=== PATIENT | male | born 1930 | race Caucasian/White ===

== ENCOUNTER → 2016-05-15 | Outpatient (CLI) | payer OTHER ==
[~2016-05-15] MED LIST: AMI200T PO; ASPI-111 PO; MET25T PO
[2016-05-15 08:37] LABS: Basophils # (auto) 0 uL; Basophils % (auto) 0.6 % (0.0-2.0); Eosinophils # (auto) 0.4 uL; Eosinophils % (auto) 5.2 % (0.0-7.0); Hematocrit 36.5 % (41.0-53.0); Hemoglobin 11.9 g/dL (13.5-17.5); Lymphocytes # (auto) 1.6 uL; Lymphocytes % (auto) 21.9 % (10.0-50.0); Mean Corpuscular Hemoglobin 28.7 pg (28.0-32.0); Mean Corpuscular Hgb Conc. 32.5 g/dL (32.0-36.0); Mean Corpuscular Volume 88.2 fL (80.0-100.0); Mean Platelet Volume 6.5 fL (7.4-10.4); Monocytes # (auto) 0.6 uL; Monocytes % (auto) 8.2 % (0.0-12.0); Neutrophils # (auto) 4.7 uL; Neutrophils % (auto) 64.1 % (37.0-80.0); Platelet Count (auto) 460 10^3/uL (140-450); Red Cell Distribution Width 14.8 % (11.6-16.0); White Blood Cell 7.4 10^3/uL (4.4-10.8)
[2016-05-15 09:13] LABS: BUN/Creatinine Ratio 18.8; Calcium 8.2 mg/dL (8.5-10.1); Potassium 4.2 mmol/L (3.5-5.1)
== END | disposition home or self-care (01) ==
LOC: LAB 08:04
PROVIDERS: ATTEND Internal Medicine
DX: Z00.00 Encounter for general adult medical examination without abnormal findings (principal)
CPT/HCPCS: 36415; 80048; 85025

== ENCOUNTER 2016-07-05 10:32 | Inpatient (IN) | payer OTHER ==
[~2016-07-05] VITALS: Ht 165.1 cm; Wt 60.5 kg
[2016-07-05 11:13] LABS: Basophils # (auto) 0 uL; Basophils % (auto) 0.1 % (0.0-2.0); Eosinophils # (auto) 0 uL; Eosinophils % (auto) 0.1 % (0.0-7.0); Hematocrit 38.9 % (41.0-53.0); Hemoglobin 12.5 g/dL (13.5-17.5); Lymphocytes # (auto) 0.6 uL; Mean Corpuscular Hemoglobin 27.2 pg (28.0-32.0); Mean Corpuscular Volume 84.8 fL (80.0-100.0); Mean Platelet Volume 6.6 fL (7.4-10.4); Monocytes # (auto) 0.8 uL; Monocytes % (auto) 6.5 % (0.0-12.0); Neutrophils # (auto) 10.9 uL; Neutrophils % (auto) 88.3 % (37.0-80.0); Platelet Count (auto) 337 10^3/uL (140-450); Red Cell Distribution Width 15.6 % (11.6-16.0); White Blood Cell 12.3 10^3/uL (4.4-10.8)
[2016-07-05] MEDS ORDERED: SODIUM CHLORIDE 0.9% 1,000 ML IV ONE (11:30)
[2016-07-05 11:56] LABS: Albumin 3.1 g/dL (3.4-5.0); Alkaline Phosphatase 125 U/L (45-117); Anion Gap 13 (5-15); Aspartate Aminotransferase 29 U/L (15-37); BUN/Creatinine Ratio 18.4; Bilirubin, Total 0.6 mg/dL (0.2-1.0); Blood Urea Nitrogen 63 mg/dL (7-18); Calcium 8.6 mg/dL (8.5-10.1); Carbon Dioxide 23 mmol/L (21-32); Chloride 101 mmol/L (98-107); GFR African American 22 mL/min; GFR Non-African American 18 mL/min; Glucose 85 mg/dL (74-106); Magnesium 3.3 mg/dL (1.6-2.6); Sodium 137 mmol/L (136-145); Total Protein 7.5 g/dL (6.4-8.2)
[2016-07-05 12:30] LABS: Urine Bilirubin Negative (Negative); Urine Color Yellow (Yellow); Urine Glucose Normal (Normal); Urine Ketone Negative (Negative); Urine Mucus FEW (None Seen); Urine Nitrite Negative (Negative); Urine RBC 162 /hpf (0 - 3); Urine Squamous Epithelial Cell FEW /hpf (<5); Urine Urobilinogen Normal (Negative); Urine WBC Clumps PRESENT /hpf (None Seen); Urine pH 5.5 (5.0-8.0)
[2016-07-05] MEDS ORDERED: MORPHINE SULF INJ 2 MG/ML SYRINGE 1ML IV PRN ×2 (12:30)
[2016-07-05] MEDS ORDERED: LACTULOSE 20Gm/30ML SOLN PO PRN (12:30)
[2016-07-05] MEDS ORDERED: ACETAMINOPHEN 500 MG TAB PO PRN (12:30)
[2016-07-05] MEDS ORDERED: HYDROcodone-ACET 5/325MG TAB PO PRN (12:30)
[2016-07-05] MEDS ORDERED: PROCHLORPERAZINE EDISYLATE 5 MG/ML 2ML VIAL IV PRN (12:30)
[2016-07-05] MEDS ORDERED: NITROGLYCERIN 0.4 MG SL TAB SL PRN (12:30)
[2016-07-05] MEDS ORDERED: cefTRIAXone 1GM/50ML D5W 50 ML IV ONE (12:30)
[2016-07-05 12:34] LABS: Urine Blood 3+ /uL (Negative)
[2016-07-05] MEDS: SODIUM CHLORIDE 0.9% 1,000 ML IV SCH ×2 (12:50→23:10)
[2016-07-05 13:11] LABS: Temperature: 22.8 C (20.0-25.0)
[2016-07-05] MEDS ORDERED: IOHEXOL 300 MG/ML 100ML BOTTLE IJ ONE (14:41)
[2016-07-05] MEDS ORDERED: TRAZ100T2 PO (15:57)
[2016-07-05 16:39] VITALS: BP 134/84
[2016-07-05 22:00] VITALS: BP 143/80
[2016-07-06 05:00] VITALS: BP 133/75
[2016-07-06 05:37] LABS: Basophils # (auto) 0 uL; Eosinophils # (auto) 0.1 uL; Eosinophils % (auto) 0.8 % (0.0-7.0); Hematocrit 32.4 % (41.0-53.0); Hemoglobin 10.3 g/dL (13.5-17.5); Lymphocytes # (auto) 0.8 uL; Lymphocytes % (auto) 12.6 % (10.0-50.0); Mean Corpuscular Hemoglobin 27.2 pg (28.0-32.0); Mean Corpuscular Hgb Conc. 31.9 g/dL (32.0-36.0); Mean Corpuscular Volume 85.2 fL (80.0-100.0); Mean Platelet Volume 7.1 fL (7.4-10.4); Monocytes # (auto) 0.5 uL; Monocytes % (auto) 7.5 % (0.0-12.0); Neutrophils # (auto) 5.3 uL; Neutrophils % (auto) 79.1 % (37.0-80.0); Platelet Count (auto) 276 10^3/uL (140-450); Red Cell Distribution Width 15.3 % (11.6-16.0); White Blood Cell 6.6 10^3/uL (4.4-10.8)
[2016-07-06 05:44] LABS: BUN/Creatinine Ratio 31.9; Calcium 7.6 mg/dL (8.5-10.1); Phosphorus 2.2 mg/dL (2.5-4.90); Potassium 3.1 mmol/L (3.5-5.1); Uric Acid 5.6 mg/dL (3.5-7.2)
[2016-07-06 08:00] VITALS: BP 135/68
[2016-07-06 08:23] VITALS: BP 135/68
[2016-07-06] MEDS: SODIUM CHLORIDE 0.9% 1,000 ML IV SCH (08:23)
[2016-07-06] MEDS: cefTRIAXone 1GM/50ML D5W 50 ML IV SCH (09:29)
[2016-07-06] MEDS ORDERED: ENOXAPARIN SOD 30 MG/0.3 ML SYRINGE SC SCH (10:00)
[2016-07-06] MEDS ORDERED: POTASSIUM CHL 20 Meq TABLET PO ONE (10:30)
[2016-07-06] MEDS: ASPirin 81 mg TAB PO SCH (10:45)
[2016-07-06] MEDS: LORazepam 0.5 MG TAB PO PRN ×2 (11:56→18:58)
[2016-07-06 16:50] VITALS: BP 137/64
[2016-07-06] MEDS: TEMAZEPAM 15 MG CAP PO PRN (21:58)
[2016-07-06 22:00] VITALS: BP 125/55
[2016-07-07] MEDS: LORazepam 0.5 MG TAB PO PRN (01:44)
[2016-07-07 05:00] VITALS: BP 161/78
[2016-07-07 05:02] LABS: Urine Bilirubin Negative (Negative); Urine Color Yellow (Yellow); Urine Glucose Normal (Normal); Urine Ketone Negative (Negative); Urine Mucus FEW (None Seen); Urine Nitrite Negative (Negative); Urine RBC 739 /hpf (0 - 3); Urine Urobilinogen Normal (Negative)
[2016-07-07 05:11] LABS: Urine Blood 3+ /uL (Negative)
[2016-07-07 05:30] VITALS: BP 161/78
[2016-07-07 07:29] LABS: BUN/Creatinine Ratio 30.3; Calcium 7.7 mg/dL (8.5-10.1); Potassium 3.7 mmol/L (3.5-5.1)
[2016-07-07 07:36] LABS: Basophils # (auto) 0 uL; Basophils % (auto) 0.2 % (0.0-2.0); Eosinophils # (auto) 0.1 uL; Eosinophils % (auto) 1.8 % (0.0-7.0); Hematocrit 33.6 % (41.0-53.0); Hemoglobin 10.8 g/dL (13.5-17.5); Lymphocytes # (auto) 1.1 uL; Lymphocytes % (auto) 20.1 % (10.0-50.0); Mean Corpuscular Hemoglobin 27.4 pg (28.0-32.0); Mean Corpuscular Volume 85.4 fL (80.0-100.0); Mean Platelet Volume 7.3 fL (7.4-10.4); Monocytes # (auto) 0.5 uL; Monocytes % (auto) 9.6 % (0.0-12.0); Neutrophils # (auto) 3.7 uL; Neutrophils % (auto) 68.3 % (37.0-80.0); Platelet Count (auto) 308 10^3/uL (140-450); White Blood Cell 5.4 10^3/uL (4.4-10.8)
[2016-07-07] MEDS ORDERED: PROPOFOL 10 MG/ML 20 ML IV ONE (07:39)
[2016-07-07] MEDS ORDERED: fentaNYL CITRATE 100 MCG/2 ML VL ONE (07:39)
[2016-07-07] MEDS ORDERED: ROCURONIUM 10MG/ML 10ML VIAL IV ONE (07:43)
[2016-07-07 08:00] VITALS: BP 143/67
[2016-07-07] MEDS: cefTRIAXone 1GM/50ML D5W 50 ML IV SCH (09:00)
[2016-07-07 09:15] LABS: INR 0.99 (0.9-1.15); Partial Thromboplastin Time 28.9 sec (22.64-33.71); Prothrombin Time 10.7 sec (9.37-12.3)
[2016-07-07] MEDS ORDERED: ONDANSETRON HCL 4 MG/2 ML VIAL IV ONE (10:00)
[2016-07-07] MEDS ORDERED: hydrALAZINE HCL 20 MG/ML VL IV PRN (10:00)
[2016-07-07] MEDS ORDERED: MORPHINE SULF INJ 2 MG/ML SYRINGE 1ML IV PRN (10:00)
[2016-07-07] MEDS: ASPirin 81 mg TAB PO SCH (10:00)
[2016-07-07] MEDS ORDERED: ENOXAPARIN SOD 40 MG/0.4 ML SYRINGE SC SCH (10:00)
[2016-07-07] MEDS: BELLADONNA ALKAL/OPIUM (16.2/30MG) RECT SUPP PR SCH (10:00)
[2016-07-07] MEDS ORDERED: ePHEDrine SULFATE 50 MG/ML AMP IV PRN (10:00)
[2016-07-07] MEDS: SODIUM CHLORIDE 0.9% 1,000 ML IV SCH (12:26)
[2016-07-07] MEDS: TEMAZEPAM 15 MG CAP PO PRN (21:17)
[2016-07-07 22:00] VITALS: BP 116/74
[2016-07-08 05:00] VITALS: BP 149/69
[2016-07-08] MEDS: SODIUM CHLORIDE 0.9% 1,000 ML IV SCH ×2 (05:48→22:04)
[2016-07-08 07:15] LABS: Basophils # (auto) 0 uL; Basophils % (auto) 0.3 % (0.0-2.0); Eosinophils # (auto) 0.2 uL; Eosinophils % (auto) 3.4 % (0.0-7.0); Hematocrit 32.4 % (41.0-53.0); Hemoglobin 10.4 g/dL (13.5-17.5); Lymphocytes # (auto) 1.1 uL; Lymphocytes % (auto) 16.5 % (10.0-50.0); Mean Corpuscular Hemoglobin 27.4 pg (28.0-32.0); Mean Corpuscular Hgb Conc. 32.2 g/dL (32.0-36.0); Mean Corpuscular Volume 84.9 fL (80.0-100.0); Mean Platelet Volume 6.9 fL (7.4-10.4); Monocytes # (auto) 0.5 uL; Monocytes % (auto) 7.6 % (0.0-12.0); Neutrophils % (auto) 72.2 % (37.0-80.0); Platelet Count (auto) 291 10^3/uL (140-450); Red Cell Distribution Width 15.4 % (11.6-16.0); White Blood Cell 6.9 10^3/uL (4.4-10.8)
[2016-07-08 07:38] LABS: Calcium 7.1 mg/dL (8.5-10.1); Potassium 3.2 mmol/L (3.5-5.1)
[2016-07-08 09:52] VITALS: BP 141/109
[2016-07-08] MEDS: BELLADONNA ALKAL/OPIUM (16.2/30MG) RECT SUPP PR SCH (10:00)
[2016-07-08] MEDS: cefTRIAXone 1GM/50ML D5W 50 ML IV SCH (10:10)
[2016-07-08] MEDS: ASPirin 81 mg TAB PO SCH (10:20)
[2016-07-08] MEDS ORDERED: POTASSIUM CHL 20 Meq TABLET PO ONE (12:15)
[2016-07-08] MEDS ORDERED: FLUCONAZOLE 200MG/100ML 100 ML IV ONE (12:30)
[2016-07-08 13:30] VITALS: BP 132/78
[2016-07-08] MEDS: METOPROLOL TARTRATE 25 MG TAB PO SCH ×2 (15:00→22:04)
[2016-07-08 17:40] VITALS: BP 138/72
[2016-07-09 06:30] LABS: Hematocrit 31.1 % (41.0-53.0); Hemoglobin 10.1 g/dL (13.5-17.5)
[2016-07-09 06:56] LABS: Calcium 7.2 mg/dL (8.5-10.1); Magnesium 1.6 mg/dL (1.6-2.6); Potassium 3.6 mmol/L (3.5-5.1)
[2016-07-09 07:10] LABS: BUN/Creatinine Ratio 14.1
[2016-07-09] MEDS: BELLADONNA ALKAL/OPIUM (16.2/30MG) RECT SUPP PR SCH (08:56)
[2016-07-09] MEDS: METOPROLOL TARTRATE 25 MG TAB PO SCH (08:56)
[2016-07-09 09:00] VITALS: BP 147/59
[2016-07-09] MEDS ORDERED: FLUCONAZOLE 200MG/100ML 100 ML IV SCH (10:00)
[2016-07-09] MEDS ORDERED: FLUC200T35 PO (10:38)
[2016-07-09] MEDS ORDERED: MAGNESIUM SULFATE 1GM/100ML 100 ML IV ONE (10:45)
[2016-07-09] MEDS ORDERED: POTASSIUM CHL 20 Meq TABLET PO ONE (10:45)
[2016-07-09 12:36] VITALS: BP 147/59
[2016-07-09 13:00] VITALS: BP 138/69
[2016-07-09] MEDS: SODIUM CHLORIDE 0.9% 1,000 ML IV SCH (14:23)
[2016-07-09 18:50] VITALS: BP 141/74
== END 2016-07-09 20:15 | disposition home or self-care (01) | DRG 666 ==
LOC: ER 10:38 → TELE 10:39 → TELE-EAST 16:27
PROVIDERS: ADMIT Internal Medicine; ATTEND Internal Medicine
PROC: 0T9B80Z Drainage of Bladder with Drainage Device, Via Natural or Artificial Opening Endoscopic (ICD-10-PCS; principal; 2016-07-05)
PROC: 0VB08ZZ Excision of Prostate, Via Natural or Artificial Opening Endoscopic (ICD-10-PCS; 2016-07-07)
DX: N32.0 Bladder-neck obstruction (principal); N13.30 Unspecified hydronephrosis; N17.9 Acute kidney failure, unspecified; N39.0 Urinary tract infection, site not specified; N40.1 Benign prostatic hyperplasia with lower urinary tract symptoms; F17.210 Nicotine dependence, cigarettes, uncomplicated; R33.8 Other retention of urine; E87.6 Hypokalemia; I48.0 Paroxysmal atrial fibrillation; F02.80 Dementia in other diseases classified elsewhere, unspecified severity, without behavioral disturbance, psychotic disturbance, mood disturbance, and anxiety; W19.XXXA Unspecified fall, initial encounter; G30.9 Alzheimer's disease, unspecified; E83.41 Hypermagnesemia; R31.0 Gross hematuria; N36.5 Urethral false passage; N18.9 Chronic kidney disease, unspecified; Z80.1 Family history of malignant neoplasm of trachea, bronchus and lung; Y92.094 Garage of other non-institutional residence as the place of occurrence of the external cause
CPT/HCPCS: 36415; 70450; 71020; 72170; 74176; 76000; 76775; 80048; 80053; 80320; 81001; 82550; 82570; 82607; 82746; 82962; 83735; 84100; 84156; 84300; 84443; 84484; 84550; 85014; 85018; 85025; 85610; 85652; 85730; 87081; 87086; 93005; 96361; 96365; J0696; J1450; J2704

== ENCOUNTER 2016-07-10 20:13 | Inpatient (IN) | payer OTHER ==
[~2016-07-10] VITALS: Ht 170.2 cm; Wt 65.3 kg
[~2016-07-10 20:13] MED LIST changes: +FLUC200T35 PO; +TRAZ100T2 PO
[2016-07-10 20:49] LABS: Hematocrit 33.1 % (41.0-53.0); Hemoglobin 10.7 g/dL (13.5-17.5); Mean Corpuscular Hemoglobin 27.1 pg (28.0-32.0); Mean Corpuscular Hgb Conc. 32.3 g/dL (32.0-36.0); Mean Corpuscular Volume 83.9 fL (80.0-100.0); Mean Platelet Volume 7.2 fL (7.4-10.4); Platelet Count (auto) 392 10^3/uL (140-450); SUSPECT VIEW TRANSMISSION; White Blood Cell 15.3 10^3/uL (4.4-10.8)
[2016-07-10 21:02] LABS: Metamyelocytes % 0; Myelocytes % 0; Promyelocytes % 0; Reactive Lymphocytes 0
[2016-07-10 21:08] LABS: Albumin 2.1 g/dL (3.4-5.0); BUN/Creatinine Ratio 8.8; Calcium 7.2 mg/dL (8.5-10.1); Magnesium 1.8 mg/dL (1.6-2.6); Potassium 3.4 mmol/L (3.5-5.1)
[2016-07-10 21:13] LABS: Bilirubin, Total 0.4 mg/dL (0.2-1.0); Total Protein 5.8 g/dL (6.4-8.2)
[2016-07-10 22:07] LABS: Platelet Estimate Adequate
[2016-07-10 22:08] LABS: Anisocytosis Slight
[2016-07-10 22:14] LABS: B-Type Natriuretic Peptide 334.85 pg/mL (0-100)
[2016-07-10 22:15] LABS: Temperature: 23.4 C (20.0-25.0)
[2016-07-10] MEDS ORDERED: PIPERACILLIN-TAZOB 3.375GM 100 ML IV ONE (23:00)
[2016-07-10] MEDS ORDERED: HYDROcodone-ACET 5/325MG TAB PO PRN (23:45)
[2016-07-10] MEDS ORDERED: MORPHINE SULF INJ 2 MG/ML SYRINGE 1ML IV PRN (23:45)
[2016-07-10] MEDS ORDERED: FLUCONAZOLE 200MG/100ML 100 ML IV ONE (23:45)
[2016-07-10] MEDS ORDERED: cefTRIAXone 1GM/50ML D5W 50 ML IV ONE (23:45)
[2016-07-10] MEDS ORDERED: ONDANSETRON HCL 4 MG/2 ML VIAL IV PRN (23:45)
[2016-07-11 00:25] LABS: Urine Bilirubin Negative (Negative); Urine Color Yellow (Yellow); Urine Glucose Normal (Normal); Urine Ketone Negative (Negative); Urine Mucus FEW (None Seen); Urine Nitrite Negative (Negative); Urine RBC 38 /hpf (0 - 3); Urine Squamous Epithelial Cell FEW /hpf (<5); Urine Urobilinogen Normal (Negative)
[2016-07-11 00:26] LABS: Urine Blood 2+ /uL (Negative)
[2016-07-11] MEDS: SOD CHL 0.9%/ KCL 20MEQ 1,000 ML IV SCH ×2 (02:11→13:05)
[2016-07-11 05:30] VITALS: BP 118/55
[2016-07-11 05:56] LABS: Basophils # (auto) 0 uL; Basophils % (auto) 0.2 % (0.0-2.0); Eosinophils # (auto) 0 uL; Eosinophils % (auto) 0.1 % (0.0-7.0); Hematocrit 29.6 % (41.0-53.0); Hemoglobin 9.5 g/dL (13.5-17.5); Lymphocytes # (auto) 1.1 uL; Lymphocytes % (auto) 7.9 % (10.0-50.0); Mean Corpuscular Volume 84.5 fL (80.0-100.0); Mean Platelet Volume 7.5 fL (7.4-10.4); Monocytes % (auto) 6.8 % (0.0-12.0); Neutrophils # (auto) 12.3 uL; Platelet Count (auto) 356 10^3/uL (140-450); Red Cell Distribution Width 15.6 % (11.6-16.0); White Blood Cell 14.4 10^3/uL (4.4-10.8)
[2016-07-11 06:08] LABS: INR 1.09 (0.9-1.15); Partial Thromboplastin Time 33.1 sec (22.64-33.71); Prothrombin Time 11.8 sec (9.37-12.3)
[2016-07-11 06:19] LABS: BUN/Creatinine Ratio 15.6; Calcium 6.9 mg/dL (8.5-10.1)
[2016-07-11 06:27] LABS: Potassium 2.9 mmol/L (3.5-5.1)
[2016-07-11] MEDS: POTASSIUM CHL 20 Meq TABLET PO ONE ×2 (06:45→07:10)
[2016-07-11] MEDS: POTASSIUM CHL 20MEQ/100ML 100 ML IV SCH ×2 (07:10→08:45)
[2016-07-11 08:00] VITALS: BP 125/61
[2016-07-11 09:00] VITALS: BP 125/61
[2016-07-11] MEDS: ASPirin 81 mg TAB PO SCH (10:44)
[2016-07-11] MEDS: AMIODARONE HCL 200 MG TAB PO SCH ×2 (10:45→21:10)
[2016-07-11] MEDS: METOPROLOL TARTRATE 25 MG TAB PO SCH ×2 (10:45→21:11)
[2016-07-11 13:00] VITALS: BP 132/70
[2016-07-11] MEDS ORDERED: FAMOTIDINE 20 MG TAB PO ONE (13:15)
[2016-07-11 16:50] VITALS: BP 101/50
[2016-07-11] MEDS: FLUCONAZOLE 200MG/100ML 100 ML IV SCH (21:07)
[2016-07-11 22:00] VITALS: BP 136/54
[2016-07-11] MEDS ORDERED: cefTRIAXone 1GM/50ML D5W 50 ML IV SCH (22:00)
[2016-07-12] MEDS: SOD CHL 0.9%/ KCL 20MEQ 1,000 ML IV SCH ×3 (02:34→20:23)
[2016-07-12 05:00] VITALS: BP 132/70
[2016-07-12 07:20] LABS: Basophils # (auto) 0 uL; Basophils % (auto) 0.2 % (0.0-2.0); Eosinophils # (auto) 0.1 uL; Eosinophils % (auto) 0.4 % (0.0-7.0); Hematocrit 31.1 % (41.0-53.0); Hemoglobin 10.3 g/dL (13.5-17.5); Lymphocytes # (auto) 1.2 uL; Lymphocytes % (auto) 6.3 % (10.0-50.0); Mean Corpuscular Hemoglobin 27.8 pg (28.0-32.0); Mean Corpuscular Volume 84.2 fL (80.0-100.0); Mean Platelet Volume 6.7 fL (7.4-10.4); Monocytes # (auto) 1.1 uL; Monocytes % (auto) 5.8 % (0.0-12.0); Neutrophils # (auto) 16.6 uL; Neutrophils % (auto) 87.3 % (37.0-80.0); Platelet Count (auto) 392 10^3/uL (140-450); Red Cell Distribution Width 16.2 % (11.6-16.0); White Blood Cell 19.1 10^3/uL (4.4-10.8)
[2016-07-12 07:40] LABS: BUN/Creatinine Ratio 18.6; Calcium 7.2 mg/dL (8.5-10.1); Magnesium 2.1 mg/dL (1.6-2.6); Potassium 3.3 mmol/L (3.5-5.1)
[2016-07-12 08:00] VITALS: BP 138/66
[2016-07-12 09:00] VITALS: BP 138/66
[2016-07-12] MEDS ORDERED: FAMOTIDINE 20 MG TAB PO SCH (10:00)
[2016-07-12] MEDS ORDERED: ENOXAPARIN SOD 30 MG/0.3 ML SYRINGE SC SCH (10:00)
[2016-07-12] MEDS ORDERED: POTASSIUM CHL 20 Meq TABLET PO ONE (10:15)
[2016-07-12] MEDS: METOPROLOL TARTRATE 25 MG TAB PO SCH ×2 (10:57→21:33)
[2016-07-12] MEDS: ASPirin 81 mg TAB PO SCH (10:57)
[2016-07-12] MEDS: metroNIDAZOLE 500 MG TAB PO SCH ×3 (10:57→23:24)
[2016-07-12] MEDS: AMIODARONE HCL 200 MG TAB PO SCH ×2 (10:58→21:31)
[2016-07-12 13:00] VITALS: BP 105/60
[2016-07-12 17:00] VITALS: BP 134/69
[2016-07-12] MEDS: FLUCONAZOLE 200MG/100ML 100 ML IV SCH (21:31)
[2016-07-12] MEDS: FAMOTIDINE 20 MG TAB PO SCH (21:32)
[2016-07-12 22:00] VITALS: BP 116/60
[2016-07-13 05:00] VITALS: BP 114/58
[2016-07-13] MEDS: metroNIDAZOLE 500 MG TAB PO SCH ×3 (05:18→17:37)
[2016-07-13 05:44] LABS: Basophils # (auto) 0 uL; Basophils % (auto) 0.2 % (0.0-2.0); Eosinophils # (auto) 0.1 uL; Hematocrit 27.4 % (41.0-53.0); Hemoglobin 8.8 g/dL (13.5-17.5); Lymphocytes % (auto) 8.5 % (10.0-50.0); Mean Corpuscular Hemoglobin 27.2 pg (28.0-32.0); Mean Corpuscular Hgb Conc. 32.2 g/dL (32.0-36.0); Mean Corpuscular Volume 84.7 fL (80.0-100.0); Mean Platelet Volume 7.4 fL (7.4-10.4); Monocytes # (auto) 0.7 uL; Neutrophils # (auto) 10.2 uL; Neutrophils % (auto) 84.3 % (37.0-80.0); Platelet Count (auto) 379 10^3/uL (140-450); Red Cell Distribution Width 15.5 % (11.6-16.0); White Blood Cell 12.1 10^3/uL (4.4-10.8)
[2016-07-13] MEDS ORDERED: POTASSIUM CHL 20 Meq TABLET PO ONE (10:00)
[2016-07-13] MEDS: ENOXAPARIN SOD 40 MG/0.4 ML SYRINGE SC SCH (10:40)
[2016-07-13] MEDS: METOPROLOL TARTRATE 25 MG TAB PO SCH ×2 (10:41→22:17)
[2016-07-13] MEDS: FAMOTIDINE 20 MG TAB PO SCH ×2 (10:41→22:18)
[2016-07-13] MEDS: ASPirin 81 mg TAB PO SCH (10:41)
[2016-07-13] MEDS: AMIODARONE HCL 200 MG TAB PO SCH ×2 (10:42→22:17)
[2016-07-13] MEDS: SOD CHL 0.9%/ KCL 20MEQ 1,000 ML IV SCH (18:25)
[2016-07-13 21:59] VITALS: BP 137/64
[2016-07-13] MEDS: FLUCONAZOLE 200MG/100ML 100 ML IV SCH (22:18)
[2016-07-14 05:00] VITALS: BP 142/90
[2016-07-14 05:41] LABS: Basophils # (auto) 0 uL; Basophils % (auto) 0.3 % (0.0-2.0); Eosinophils # (auto) 0.1 uL; Eosinophils % (auto) 0.8 % (0.0-7.0); Hematocrit 28.4 % (41.0-53.0); Hemoglobin 9.1 g/dL (13.5-17.5); Lymphocytes # (auto) 1.1 uL; Lymphocytes % (auto) 10.4 % (10.0-50.0); Mean Corpuscular Hemoglobin 27.2 pg (28.0-32.0); Mean Corpuscular Hgb Conc. 32.1 g/dL (32.0-36.0); Mean Corpuscular Volume 84.7 fL (80.0-100.0); Mean Platelet Volume 7.4 fL (7.4-10.4); Monocytes # (auto) 0.5 uL; Monocytes % (auto) 5.1 % (0.0-12.0); Neutrophils # (auto) 8.4 uL; Neutrophils % (auto) 83.4 % (37.0-80.0); Platelet Count (auto) 386 10^3/uL (140-450); Red Cell Distribution Width 15.9 % (11.6-16.0); White Blood Cell 10.1 10^3/uL (4.4-10.8)
[2016-07-14] MEDS: metroNIDAZOLE 500 MG TAB PO SCH ×5 (06:16→23:34)
[2016-07-14] MEDS: AMIODARONE HCL 200 MG TAB PO SCH ×2 (09:17→22:21)
[2016-07-14] MEDS: ASPirin 81 mg TAB PO SCH (09:17)
[2016-07-14] MEDS: FAMOTIDINE 20 MG TAB PO SCH ×2 (09:17→22:22)
[2016-07-14] MEDS: METOPROLOL TARTRATE 25 MG TAB PO SCH ×2 (09:26→22:21)
[2016-07-14] MEDS: SOD CHL 0.9%/ KCL 20MEQ 1,000 ML IV SCH ×2 (09:27→22:21)
[2016-07-14] MEDS: ENOXAPARIN SOD 40 MG/0.4 ML SYRINGE SC SCH (09:30)
[2016-07-14] MEDS ORDERED: POTASSIUM CHL 20 Meq TABLET PO ONE (11:00)
[2016-07-14] MEDS: FLUCONAZOLE 200MG/100ML 100 ML IV SCH (22:21)
[2016-07-15] MEDS: metroNIDAZOLE 500 MG TAB PO SCH ×3 (06:25→18:00)
[2016-07-15 06:39] LABS: Basophils # (auto) 0 uL; Basophils % (auto) 0.2 % (0.0-2.0); Eosinophils # (auto) 0.1 uL; Eosinophils % (auto) 0.7 % (0.0-7.0); Hematocrit 28.6 % (41.0-53.0); Hemoglobin 9.3 g/dL (13.5-17.5); Lymphocytes # (auto) 1.1 uL; Lymphocytes % (auto) 10.7 % (10.0-50.0); Mean Corpuscular Hemoglobin 27.6 pg (28.0-32.0); Mean Corpuscular Hgb Conc. 32.4 g/dL (32.0-36.0); Mean Platelet Volume 7.3 fL (7.4-10.4); Monocytes # (auto) 0.6 uL; Monocytes % (auto) 5.8 % (0.0-12.0); Neutrophils # (auto) 8.6 uL; Neutrophils % (auto) 82.6 % (37.0-80.0); Platelet Count (auto) 418 10^3/uL (140-450); White Blood Cell 10.4 10^3/uL (4.4-10.8)
[2016-07-15 07:06] LABS: BUN/Creatinine Ratio 17.7; Potassium 3.7 mmol/L (3.5-5.1)
[2016-07-15 09:00] VITALS: BP 140/58
[2016-07-15] MEDS: ASPirin 81 mg TAB PO SCH (10:05)
[2016-07-15] MEDS: ENOXAPARIN SOD 40 MG/0.4 ML SYRINGE SC SCH (10:06)
[2016-07-15] MEDS: METOPROLOL TARTRATE 25 MG TAB PO SCH ×2 (10:06→21:43)
[2016-07-15] MEDS: FAMOTIDINE 20 MG TAB PO SCH ×2 (10:06→21:43)
[2016-07-15] MEDS: AMIODARONE HCL 200 MG TAB PO SCH ×2 (10:06→21:43)
[2016-07-15] MEDS: SOD CHL 0.9%/ KCL 20MEQ 1,000 ML IV SCH (12:00)
[2016-07-15 12:42] VITALS: BP 108/63
[2016-07-15 17:05] VITALS: BP 122/47
[2016-07-15] MEDS: PRO-STAT 64 30ML PO SCH (18:00)
[2016-07-15] MEDS: BOOST PLUS 8 ounce PO SCH (18:00)
[2016-07-15 22:00] VITALS: BP 156/75
[2016-07-16] MEDS: SOD CHL 0.9%/ KCL 20MEQ 1,000 ML IV SCH ×2 (01:00→14:16)
[2016-07-16] MEDS: metroNIDAZOLE 500 MG TAB PO SCH ×3 (01:00→12:00)
[2016-07-16 05:00] VITALS: BP 132/62
[2016-07-16 07:04] LABS: Hematocrit 29.8 % (41.0-53.0); Hemoglobin 9.7 g/dL (13.5-17.5)
[2016-07-16 09:00] VITALS: BP 131/66
[2016-07-16] MEDS ORDERED: POTASSIUM CHL 20 Meq TABLET PO ONE (09:15)
[2016-07-16] MEDS ORDERED: POTA10TA51 PO (10:05)
[2016-07-16] MEDS ORDERED: MET500T PO (10:05)
[2016-07-16] MEDS: BOOST PLUS 8 ounce PO SCH ×2 (11:05→12:00)
[2016-07-16] MEDS: PRO-STAT 64 30ML PO SCH (11:05)
[2016-07-16] MEDS: AMIODARONE HCL 200 MG TAB PO SCH (11:05)
[2016-07-16] MEDS: METOPROLOL TARTRATE 25 MG TAB PO SCH (11:06)
[2016-07-16] MEDS: FAMOTIDINE 20 MG TAB PO SCH (11:06)
[2016-07-16] MEDS: ASPirin 81 mg TAB PO SCH (11:06)
[2016-07-16] MEDS: ENOXAPARIN SOD 40 MG/0.4 ML SYRINGE SC SCH (11:07)
[2016-07-16 12:17] VITALS: BP 131/76
[2016-07-16 14:48] VITALS: BP 131/70
[2016-07-16 17:15] VITALS: BP 148/73
== END 2016-07-16 17:48 | disposition home health service (06) | DRG 871 ==
LOC: ER 20:20 → CENTRAL 20:21
PROVIDERS: ADMIT Internal Medicine; ATTEND Internal Medicine
DX: A41.9 Sepsis, unspecified organism (principal); J18.9 Pneumonia, unspecified organism; G93.41 Metabolic encephalopathy; E46 Unspecified protein-calorie malnutrition; A04.7 Enterocolitis due to Clostridium difficile; N13.30 Unspecified hydronephrosis; N17.9 Acute kidney failure, unspecified; R33.8 Other retention of urine; F17.210 Nicotine dependence, cigarettes, uncomplicated; F02.80 Dementia in other diseases classified elsewhere, unspecified severity, without behavioral disturbance, psychotic disturbance, mood disturbance, and anxiety; G30.9 Alzheimer's disease, unspecified; I51.7 Cardiomegaly; M47.814 Spondylosis without myelopathy or radiculopathy, thoracic region; M19.90 Unspecified osteoarthritis, unspecified site; D63.8 Anemia in other chronic diseases classified elsewhere; N40.1 Benign prostatic hyperplasia with lower urinary tract symptoms; E87.6 Hypokalemia; I11.9 Hypertensive heart disease without heart failure; M25.861 Other specified joint disorders, right knee; I48.0 Paroxysmal atrial fibrillation; W19.XXXA Unspecified fall, initial encounter; Y92.009 Unspecified place in unspecified non-institutional (private) residence as the place of occurrence of the external cause; Z80.1 Family history of malignant neoplasm of trachea, bronchus and lung; Z68.22 Body mass index [BMI] 22.0-22.9, adult
CPT/HCPCS: 36415; 70450; 71010; 73562; 77074; 78306; 80048; 80053; 81001; 82270; 83540; 83550; 83735; 83880; 84132; 84484; 85007; 85014; 85018; 85025; 85027; 85610; 85730; 87040; 87081; 87086; 87493; 93005; 96374; 97001; J0696; J1450; J2543; J3480

== ENCOUNTER 2016-07-18 16:14 | Inpatient (IN) | payer OTHER ==
[~2016-07-18] VITALS: Ht 172.7 cm; Wt 61.0 kg
[~2016-07-18 16:14] MED LIST changes: +MET500T PO; +POTA10TA51 PO
[2016-07-18 17:02] LABS: Basophils # (auto) 0 uL; Eosinophils # (auto) 0 uL; Eosinophils % (auto) 0.1 % (0.0-7.0); Hematocrit 31.9 % (41.0-53.0); Hemoglobin 10.4 g/dL (13.5-17.5); Lymphocytes # (auto) 0.9 uL; Lymphocytes % (auto) 7.5 % (10.0-50.0); Mean Corpuscular Hgb Conc. 32.7 g/dL (32.0-36.0); Mean Corpuscular Volume 82.7 fL (80.0-100.0); Mean Platelet Volume 6.4 fL (7.4-10.4); Monocytes # (auto) 0.6 uL; Monocytes % (auto) 4.9 % (0.0-12.0); Neutrophils % (auto) 87.5 % (37.0-80.0); Platelet Count (auto) 498 10^3/uL (140-450); Red Cell Distribution Width 16.1 % (11.6-16.0); White Blood Cell 12.6 10^3/uL (4.4-10.8)
[2016-07-18 17:34] LABS: Albumin 1.8 g/dL (3.4-5.0); Alkaline Phosphatase 92 U/L (45-117); Anion Gap 8 (5-15); Aspartate Aminotransferase 18 U/L (15-37); BUN/Creatinine Ratio 18.3; Bilirubin, Total 0.4 mg/dL (0.2-1.0); Blood Urea Nitrogen 11 mg/dL (7-18); Calcium 7.3 mg/dL (8.5-10.1); Carbon Dioxide 25 mmol/L (21-32); Chloride 102 mmol/L (98-107); GFR African American 164 mL/min; GFR Non-African American 136 mL/min; Glucose 90 mg/dL (74-106); Magnesium 2.2 mg/dL (1.6-2.6); Potassium 3.6 mmol/L (3.5-5.1); Sodium 135 mmol/L (136-145); Total Protein 5.7 g/dL (6.4-8.2)
[2016-07-18] MEDS ORDERED: methylPREDNISolone SOD SUCC 125 MG/2 ML VL IV ONE (23:45)
[2016-07-18] MEDS ORDERED: PIPERACILLIN-TAZOB 3.375GM 100 ML IV ONE (23:45)
[2016-07-18] MEDS ORDERED: ALBUTEROL SULF 2.5 MG/0.5ML(0.5%) NEB SOLN NEB ONE (23:45)
[2016-07-18] MEDS ORDERED: IPRATROPIUM BROM 0.5 MG/2.5ML INH SOL NEB ONE (23:45)
[2016-07-19 00:06] LABS: Basophils # (auto) 0.1 uL; Basophils % (auto) 0.6 % (0.0-2.0); DEFINITIVE VIEW TRANSMISSION; Eosinophils # (auto) 0 uL; Eosinophils % (auto) 0.1 % (0.0-7.0); Hematocrit 29.7 % (41.0-53.0); Hemoglobin 9.6 g/dL (13.5-17.5); Lymphocytes # (auto) 0.9 uL; Lymphocytes % (auto) 7.3 % (10.0-50.0); Mean Corpuscular Hemoglobin 26.4 pg (28.0-32.0); Mean Corpuscular Hgb Conc. 32.5 g/dL (32.0-36.0); Mean Corpuscular Volume 81.2 fL (80.0-100.0); Mean Platelet Volume 6.8 fL (7.4-10.4); Monocytes # (auto) 0.6 uL; Neutrophils # (auto) 10.5 uL; Platelet Count (auto) 393 10^3/uL (140-450); Red Cell Distribution Width 14.9 % (11.6-16.0); SUSPECT VIEW TRANSMISSION; White Blood Cell 12.1 10^3/uL (4.4-10.8)
[2016-07-19 00:40] LABS: Albumin 1.8 g/dL (3.4-5.0); Anion Gap 9 (5-15); Aspartate Aminotransferase 16 U/L (15-37); BUN/Creatinine Ratio 19.4; Blood Urea Nitrogen 12 mg/dL (7-18); Calcium 7.2 mg/dL (8.5-10.1); Carbon Dioxide 24 mmol/L (21-32); Chloride 104 mmol/L (98-107); GFR African American 158 mL/min; GFR Non-African American 131 mL/min; Glucose 87 mg/dL (74-106); Magnesium 1.9 mg/dL (1.6-2.6); Potassium 3.2 mmol/L (3.5-5.1); Sodium 137 mmol/L (136-145)
[2016-07-19 00:44] LABS: Alkaline Phosphatase 83 U/L (45-117); Bilirubin, Total 0.4 mg/dL (0.2-1.0); Total Protein 5.3 g/dL (6.4-8.2)
[2016-07-19 01:05] LABS: Urine Bilirubin Negative (Negative); Urine Color PINK (Yellow); Urine Glucose Normal (Normal); Urine Ketone Negative (Negative); Urine Mucus MODERATE (None Seen); Urine Nitrite Negative (Negative); Urine RBC 73 /hpf (0 - 3); Urine Urobilinogen Normal (Negative); Urine WBC Clumps PRESENT /hpf (None Seen)
[2016-07-19 01:06] LABS: Urine Blood 2+ /uL (Negative)
[2016-07-19 01:07] LABS: Temperature: 22.2 C (20.0-25.0)
[2016-07-19] MEDS ORDERED: SODIUM CHLORIDE 0.9% 1,000 ML IV SCH (05:41)
[2016-07-19] MEDS ORDERED: ONDANSETRON HCL 4 MG/2 ML VIAL IV PRN (05:45)
[2016-07-19] MEDS ORDERED: ACETAMINOPHEN 325 MG TAB PO PRN (05:45)
[2016-07-19] MEDS ORDERED: MORPHINE SULF INJ 2 MG/ML SYRINGE 1ML IV PRN ×3 (05:45→12:00)
[2016-07-19] MEDS ORDERED: NITROGLYCERIN 0.4 MG SL TAB SL PRN (05:45)
[2016-07-19] MEDS ORDERED: POTASSIUM CHL 10% (20 MEQ/15ML) ORAL SOLN PO ONE (06:00)
[2016-07-19] MEDS ORDERED: PIPERACILLIN-TAZOB 3.375GM 100 ML IV SCH (07:00)
[2016-07-19] MEDS ORDERED: ENOXAPARIN SOD 30 MG/0.3 ML SYRINGE SC SCH (10:00)
[2016-07-19] MEDS ORDERED: IPRATROPIUM BROM 0.5 MG/2.5ML INH SOL NEB ONE (10:00)
[2016-07-19] MEDS ORDERED: ALBUTEROL SULF 2.5 MG/0.5ML(0.5%) NEB SOLN NEB ONE (10:00)
[2016-07-19] MEDS ORDERED: FUROSEMIDE 40 MG/4 ML VIAL IV ONE (10:00)
[2016-07-19] MEDS ORDERED: ENOXAPARIN SOD 40 MG/0.4 ML SYRINGE SC SCH (10:00)
[2016-07-19] MEDS ORDERED: ZINC SULFATE 220 MG CAP PO SCH (10:00)
[2016-07-19] MEDS ORDERED: methylPREDNISolone SOD SUCC 125 MG/2 ML VL IV ONE (10:00)
[2016-07-19] MEDS ORDERED: ASCORBIC ACID 500 MG TAB PO SCH (10:00)
[2016-07-19] MEDS ORDERED: FAMOTIDINE 20 MG TAB PO SCH (10:00)
[2016-07-19] MEDS ORDERED: CIPROFLOXACIN HCL 500 MG TAB PO SCH (10:00)
[2016-07-19] MEDS ORDERED: CIPROFLOXACIN HCL 500 MG TAB PO ONE (10:00)
[2016-07-19] MEDS ORDERED: PIPERACILLIN-TAZOB 3.375GM 100 ML IV ONE (10:00)
[2016-07-19] MEDS: MULTIPLE VITAMIN TAB PO SCH (10:48)
[2016-07-19] MEDS ORDERED: ASPirin 81 mg TAB PO ONE (12:00)
[2016-07-19] MEDS ORDERED: ERTAPENEM SOD INJ 1 GM in SODIUM CHL 0.9% 50 ML IV ONE (12:00)
[2016-07-19] MEDS ORDERED: HYDROcodone-ACET 5/325MG TAB PO PRN (12:00)
[2016-07-19] MEDS ORDERED: FLORASTOR (S. BOULARDII) 250 MG CAP PO ONE (12:00)
[2016-07-19] MEDS ORDERED: AMIODARONE HCL 200 MG TAB PO ONE (12:00)
[2016-07-19 16:11] VITALS: BP 132/58
[2016-07-19 17:00] VITALS: BP 125/69
[2016-07-19 18:45] VITALS: BP 126/60
[2016-07-19 22:00] VITALS: BP 119/66
[2016-07-19] MEDS: AMIODARONE HCL 200 MG TAB PO SCH (22:06)
[2016-07-19] MEDS: ALBUTEROL SULF 2.5 MG/0.5ML(0.5%) NEB SOLN NEB SCH (22:45)
[2016-07-19] MEDS: IPRATROPIUM BROM 0.5 MG/2.5ML INH SOL NEB SCH (22:45)
[2016-07-20 05:00] VITALS: BP 131/64
[2016-07-20 08:50] VITALS: BP 135/70
[2016-07-20] MEDS: IPRATROPIUM BROM 0.5 MG/2.5ML INH SOL NEB SCH ×2 (09:44→20:52)
[2016-07-20] MEDS: ALBUTEROL SULF 2.5 MG/0.5ML(0.5%) NEB SOLN NEB SCH ×2 (09:44→20:52)
[2016-07-20 10:02] LABS: Base Excess 0.2 mmol/L (-2.0-2.0); Blood 02Sat 87.4 % (96-100); Blood COHb 0.1 % (0.5-1.5); Blood MetHb 0.3 % (0.0-1.5); HCO3 22.4 mmol/L (22-26.0); HHb 12.5 % (0.0-5.0); MODE RA; O2Hb 87.1 % (94.0-97.0); PCO2 28.6 mmHg (35.0-45.0); PCO2(T) 28.6 mmHg (35.0-45.0); PO2 52.9 mmHg (80.0-100.0); PO2(T) 52.9 mmHg (80.0-100.0); Sample Type Arterial; pH 7.512 (7.350-7.450)
[2016-07-20] MEDS: FLORASTOR (S. BOULARDII) 250 MG CAP PO SCH (10:06)
[2016-07-20] MEDS: MULTIPLE VITAMIN TAB PO SCH (10:06)
[2016-07-20] MEDS: ASPirin 81 mg TAB PO SCH (10:07)
[2016-07-20] MEDS: AMIODARONE HCL 200 MG TAB PO SCH ×2 (10:07→22:11)
[2016-07-20] MEDS: ERTAPENEM SOD INJ 1 GM in SODIUM CHL 0.9% 50 ML IV SCH (10:18)
[2016-07-20 13:00] VITALS: BP 130/60
[2016-07-20 17:00] VITALS: BP 128/55
[2016-07-20] MEDS: BOOST PLUS 8 ounce PO SCH ×2 (18:58→22:11)
[2016-07-20 19:22] LABS: Basophils # (auto) 0 uL; Eosinophils # (auto) 0 uL; Hematocrit 30.9 % (41.0-53.0); Hemoglobin 10.1 g/dL (13.5-17.5); Lymphocytes # (auto) 0.7 uL; Lymphocytes % (auto) 5.2 % (10.0-50.0); Mean Corpuscular Hemoglobin 27.2 pg (28.0-32.0); Mean Corpuscular Hgb Conc. 32.8 g/dL (32.0-36.0); Mean Corpuscular Volume 82.8 fL (80.0-100.0); Mean Platelet Volume 7.1 fL (7.4-10.4); Monocytes # (auto) 0.5 uL; Monocytes % (auto) 3.4 % (0.0-12.0); Neutrophils # (auto) 12.8 uL; Neutrophils % (auto) 91.4 % (37.0-80.0); Platelet Count (auto) 477 10^3/uL (140-450); Red Cell Distribution Width 16.5 % (11.6-16.0)
[2016-07-20 19:25] LABS: BUN/Creatinine Ratio 31.3; Calcium 7.8 mg/dL (8.5-10.1); Potassium 3.5 mmol/L (3.5-5.1)
[2016-07-20 21:49] VITALS: BP 130/60
[2016-07-21 04:50] VITALS: BP 121/61
[2016-07-21 05:44] LABS: Basophils # (auto) 0 uL; Eosinophils # (auto) 0 uL; Hematocrit 28.1 % (41.0-53.0); Hemoglobin 9.1 g/dL (13.5-17.5); Lymphocytes # (auto) 0.9 uL; Lymphocytes % (auto) 7.6 % (10.0-50.0); Mean Corpuscular Hgb Conc. 32.5 g/dL (32.0-36.0); Mean Corpuscular Volume 83.3 fL (80.0-100.0); Mean Platelet Volume 6.9 fL (7.4-10.4); Monocytes # (auto) 0.5 uL; Monocytes % (auto) 4.2 % (0.0-12.0); Neutrophils # (auto) 10.3 uL; Neutrophils % (auto) 88.2 % (37.0-80.0); Platelet Count (auto) 426 10^3/uL (140-450); Red Cell Distribution Width 16.5 % (11.6-16.0); White Blood Cell 11.6 10^3/uL (4.4-10.8)
[2016-07-21 05:58] LABS: Albumin 1.8 g/dL (3.4-5.0); BUN/Creatinine Ratio 34.5; Bilirubin, Total 0.2 mg/dL (0.2-1.0); Calcium 7.5 mg/dL (8.5-10.1); Potassium 3.3 mmol/L (3.5-5.1); Total Protein 5.1 g/dL (6.4-8.2)
[2016-07-21] MEDS: BOOST PLUS 8 ounce PO SCH ×4 (06:05→22:25)
[2016-07-21] MEDS: IPRATROPIUM BROM 0.5 MG/2.5ML INH SOL NEB SCH ×2 (08:11→22:00)
[2016-07-21] MEDS: ALBUTEROL SULF 2.5 MG/0.5ML(0.5%) NEB SOLN NEB SCH ×2 (08:12→22:00)
[2016-07-21 09:00] VITALS: BP 150/72
[2016-07-21] MEDS: ERTAPENEM SOD INJ 1 GM in SODIUM CHL 0.9% 50 ML IV SCH (09:00)
[2016-07-21] MEDS: FLORASTOR (S. BOULARDII) 250 MG CAP PO SCH (09:00)
[2016-07-21] MEDS: MULTIPLE VITAMIN TAB PO SCH (09:01)
[2016-07-21] MEDS: AMIODARONE HCL 200 MG TAB PO SCH ×2 (09:01→22:24)
[2016-07-21] MEDS: ASPirin 81 mg TAB PO SCH (09:02)
[2016-07-21 13:00] VITALS: BP 125/66
[2016-07-21] MEDS ORDERED: POTASSIUM CHL 10 Meq TABLET PO ONE (13:15)
[2016-07-21 17:00] VITALS: BP 128/61
[2016-07-21 22:00] VITALS: BP 134/55
[2016-07-22 05:51] VITALS: BP 128/64
[2016-07-22 05:59] LABS: Basophils # (auto) 0 uL; Eosinophils # (auto) 0 uL; Eosinophils % (auto) 0.1 % (0.0-7.0); Hematocrit 30.5 % (41.0-53.0); Hemoglobin 9.9 g/dL (13.5-17.5); Mean Corpuscular Hemoglobin 27.2 pg (28.0-32.0); Mean Corpuscular Hgb Conc. 32.5 g/dL (32.0-36.0); Mean Corpuscular Volume 83.7 fL (80.0-100.0); Mean Platelet Volume 6.9 fL (7.4-10.4); Monocytes # (auto) 0.5 uL; Monocytes % (auto) 4.2 % (0.0-12.0); Neutrophils # (auto) 9.5 uL; Neutrophils % (auto) 86.7 % (37.0-80.0); Platelet Count (auto) 452 10^3/uL (140-450); Red Cell Distribution Width 16.1 % (11.6-16.0)
[2016-07-22 06:17] LABS: Albumin 1.8 g/dL (3.4-5.0); Calcium 7.3 mg/dL (8.5-10.1)
[2016-07-22 06:20] LABS: BUN/Creatinine Ratio 32.3
[2016-07-22 06:22] LABS: Bilirubin, Total 0.3 mg/dL (0.2-1.0)
[2016-07-22] MEDS: BOOST PLUS 8 ounce PO SCH ×4 (06:25→22:00)
[2016-07-22 09:00] VITALS: BP 148/73
[2016-07-22] MEDS: IPRATROPIUM BROM 0.5 MG/2.5ML INH SOL NEB SCH ×2 (10:32→22:49)
[2016-07-22] MEDS: ALBUTEROL SULF 2.5 MG/0.5ML(0.5%) NEB SOLN NEB SCH ×2 (10:32→22:49)
[2016-07-22] MEDS: AMIODARONE HCL 200 MG TAB PO SCH ×2 (10:32→22:32)
[2016-07-22] MEDS: ASPirin 81 mg TAB PO SCH (10:32)
[2016-07-22] MEDS: ERTAPENEM SOD INJ 1 GM in SODIUM CHL 0.9% 50 ML IV SCH (10:33)
[2016-07-22] MEDS: MULTIPLE VITAMIN TAB PO SCH (10:33)
[2016-07-22] MEDS: FLORASTOR (S. BOULARDII) 250 MG CAP PO SCH (10:44)
[2016-07-22] MEDS ORDERED: LINEZOLID 600MG/300ML 300 ML IV SCH (12:15)
[2016-07-22 13:00] VITALS: BP 123/63
[2016-07-22 14:20] VITALS: BP 148/73
[2016-07-22] MEDS ORDERED: LINEZOLID 600MG/300ML 300 ML IV ONE (15:37)
[2016-07-22 17:00] VITALS: BP 144/69
[2016-07-22] MEDS: TEMAZEPAM 15 MG CAP PO PRN (22:31)
[2016-07-23] MEDS: LINEZOLID 600MG/300ML 300 ML IV SCH ×2 (04:22→16:53)
[2016-07-23] MEDS: BOOST PLUS 8 ounce PO SCH ×4 (05:45→21:33)
[2016-07-23 06:41] LABS: Basophils # (auto) 0 uL; Eosinophils # (auto) 0.1 uL; Eosinophils % (auto) 0.9 % (0.0-7.0); Hematocrit 28.9 % (41.0-53.0); Hemoglobin 9.6 g/dL (13.5-17.5); Lymphocytes # (auto) 1.1 uL; Lymphocytes % (auto) 11.9 % (10.0-50.0); Mean Corpuscular Hemoglobin 27.6 pg (28.0-32.0); Mean Corpuscular Hgb Conc. 33.1 g/dL (32.0-36.0); Mean Corpuscular Volume 83.5 fL (80.0-100.0); Mean Platelet Volume 6.9 fL (7.4-10.4); Monocytes # (auto) 0.5 uL; Monocytes % (auto) 5.3 % (0.0-12.0); Neutrophils # (auto) 7.4 uL; Neutrophils % (auto) 81.9 % (37.0-80.0); Platelet Count (auto) 422 10^3/uL (140-450); Red Cell Distribution Width 16.3 % (11.6-16.0)
[2016-07-23 08:31] VITALS: BP 122/57
[2016-07-23] MEDS: AMIODARONE HCL 200 MG TAB PO SCH ×2 (08:49→21:29)
[2016-07-23] MEDS: ASPirin 81 mg TAB PO SCH (08:49)
[2016-07-23] MEDS: MULTIPLE VITAMIN TAB PO SCH (08:49)
[2016-07-23] MEDS: FLORASTOR (S. BOULARDII) 250 MG CAP PO SCH (08:49)
[2016-07-23] MEDS: ALBUTEROL SULF 2.5 MG/0.5ML(0.5%) NEB SOLN NEB SCH ×2 (10:58→19:32)
[2016-07-23] MEDS: IPRATROPIUM BROM 0.5 MG/2.5ML INH SOL NEB SCH ×2 (10:58→19:32)
[2016-07-23 13:00] VITALS: BP 127/56
[2016-07-23 17:00] VITALS: BP 131/59
[2016-07-23] MEDS: PRO-STAT 64 30ML PO SCH (17:27)
[2016-07-23] MEDS: TEMAZEPAM 15 MG CAP PO PRN (21:29)
[2016-07-23 22:00] VITALS: BP 130/58
[2016-07-24 05:03] VITALS: BP 111/55
[2016-07-24] MEDS: LINEZOLID 600MG/300ML 300 ML IV SCH ×2 (05:27→16:40)
[2016-07-24] MEDS: BOOST PLUS 8 ounce PO SCH ×4 (06:00→22:00)
[2016-07-24] MEDS: PRO-STAT 64 30ML PO SCH ×2 (07:05→17:53)
[2016-07-24 07:32] LABS: Basophils # (auto) 0 uL; Basophils % (auto) 0.1 % (0.0-2.0); Eosinophils # (auto) 0.2 uL; Eosinophils % (auto) 1.7 % (0.0-7.0); Hematocrit 30.9 % (41.0-53.0); Hemoglobin 10.1 g/dL (13.5-17.5); Lymphocytes # (auto) 1.1 uL; Lymphocytes % (auto) 10.2 % (10.0-50.0); Mean Corpuscular Hemoglobin 27.1 pg (28.0-32.0); Mean Corpuscular Hgb Conc. 32.7 g/dL (32.0-36.0); Mean Corpuscular Volume 82.9 fL (80.0-100.0); Mean Platelet Volume 7.6 fL (7.4-10.4); Monocytes # (auto) 0.5 uL; Monocytes % (auto) 5.1 % (0.0-12.0); Neutrophils # (auto) 8.8 uL; Neutrophils % (auto) 82.9 % (37.0-80.0); Platelet Count (auto) 451 10^3/uL (140-450); Red Cell Distribution Width 16.2 % (11.6-16.0); White Blood Cell 10.6 10^3/uL (4.4-10.8)
[2016-07-24 08:43] VITALS: BP 133/54
[2016-07-24] MEDS: ASPirin 81 mg TAB PO SCH (09:39)
[2016-07-24] MEDS: FLORASTOR (S. BOULARDII) 250 MG CAP PO SCH (09:39)
[2016-07-24] MEDS: MULTIPLE VITAMIN TAB PO SCH (09:39)
[2016-07-24] MEDS: AMIODARONE HCL 200 MG TAB PO SCH ×2 (09:39→22:16)
[2016-07-24] MEDS: IPRATROPIUM BROM 0.5 MG/2.5ML INH SOL NEB SCH ×2 (09:45→22:22)
[2016-07-24] MEDS: ALBUTEROL SULF 2.5 MG/0.5ML(0.5%) NEB SOLN NEB SCH ×2 (09:45→22:23)
[2016-07-24] MEDS: metroNIDAZOLE 500 MG TAB PO SCH ×3 (12:34→23:56)
[2016-07-24 13:00] VITALS: BP 120/55
[2016-07-24 17:00] VITALS: BP 122/59
[2016-07-24] MEDS: TEMAZEPAM 15 MG CAP PO PRN (22:16)
[2016-07-25] MEDS: LINEZOLID 600MG/300ML 300 ML IV SCH ×2 (04:58→17:11)
[2016-07-25] MEDS: BOOST PLUS 8 ounce PO SCH ×4 (06:00→22:33)
[2016-07-25] MEDS: metroNIDAZOLE 500 MG TAB PO SCH ×3 (06:23→18:38)
[2016-07-25] MEDS: ALBUTEROL SULF 2.5 MG/0.5ML(0.5%) NEB SOLN NEB SCH ×2 (06:31→18:39)
[2016-07-25] MEDS: IPRATROPIUM BROM 0.5 MG/2.5ML INH SOL NEB SCH ×2 (06:32→18:39)
[2016-07-25 08:00] VITALS: BP 128/56
[2016-07-25] MEDS: FLORASTOR (S. BOULARDII) 250 MG CAP PO SCH (10:00)
[2016-07-25 13:00] VITALS: BP 107/47
[2016-07-25] MEDS: ASPirin 81 mg TAB PO SCH (15:44)
[2016-07-25] MEDS: PRO-STAT 64 30ML PO SCH ×2 (15:44→18:39)
[2016-07-25] MEDS: MULTIPLE VITAMIN TAB PO SCH (15:45)
[2016-07-25] MEDS: AMIODARONE HCL 200 MG TAB PO SCH ×2 (15:46→22:33)
[2016-07-25 16:44] VITALS: BP 115/53
[2016-07-25 20:14] VITALS: BP 115/53
[2016-07-25 22:00] VITALS: BP 128/67
[2016-07-26] MEDS: metroNIDAZOLE 500 MG TAB PO SCH ×5 (00:27→23:46)
[2016-07-26] MEDS: TEMAZEPAM 15 MG CAP PO PRN (00:28)
[2016-07-26] MEDS: LINEZOLID 600MG/300ML 300 ML IV SCH ×2 (05:06→16:53)
[2016-07-26] MEDS: BOOST PLUS 8 ounce PO SCH ×4 (05:12→22:00)
[2016-07-26 05:59] VITALS: BP 117/53
[2016-07-26] MEDS: ALBUTEROL SULF 2.5 MG/0.5ML(0.5%) NEB SOLN NEB SCH ×2 (06:10→22:48)
[2016-07-26] MEDS: IPRATROPIUM BROM 0.5 MG/2.5ML INH SOL NEB SCH ×2 (06:11→22:47)
[2016-07-26] MEDS: PRO-STAT 64 30ML PO SCH ×2 (07:40→17:05)
[2016-07-26 09:00] VITALS: BP 123/70
[2016-07-26] MEDS: ASPirin 81 mg TAB PO SCH (09:46)
[2016-07-26] MEDS: MULTIPLE VITAMIN TAB PO SCH (09:46)
[2016-07-26] MEDS: FLORASTOR (S. BOULARDII) 250 MG CAP PO SCH (09:46)
[2016-07-26] MEDS: AMIODARONE HCL 200 MG TAB PO SCH ×2 (09:47→22:12)
[2016-07-26] MEDS ORDERED: HYDROcodone-ACET 5/325MG TAB PO PRN (12:00)
[2016-07-26] MEDS ORDERED: TEMAZEPAM 15 MG CAP PO PRN (12:00)
[2016-07-26 13:00] VITALS: BP 119/58
[2016-07-26 16:50] VITALS: BP 116/56
[2016-07-26 21:38] VITALS: BP 137/51
[2016-07-27 04:34] VITALS: BP 119/57
[2016-07-27] MEDS: metroNIDAZOLE 500 MG TAB PO SCH ×4 (05:18→22:49)
[2016-07-27] MEDS: LINEZOLID 600MG/300ML 300 ML IV SCH ×2 (05:18→17:00)
[2016-07-27] MEDS: BOOST PLUS 8 ounce PO SCH ×4 (05:18→22:49)
[2016-07-27] MEDS: PRO-STAT 64 30ML PO SCH ×2 (07:25→17:40)
[2016-07-27 09:00] VITALS: BP 118/56
[2016-07-27] MEDS: AMIODARONE HCL 200 MG TAB PO SCH ×2 (11:13→22:49)
[2016-07-27] MEDS: FLORASTOR (S. BOULARDII) 250 MG CAP PO SCH (11:13)
[2016-07-27] MEDS: ASPirin 81 mg TAB PO SCH (11:13)
[2016-07-27] MEDS: MULTIPLE VITAMIN TAB PO SCH (11:13)
[2016-07-27 13:00] VITALS: BP 127/64
[2016-07-27 16:29] VITALS: BP 141/63
[2016-07-27 21:54] VITALS: BP 141/78
[2016-07-27] MEDS: IPRATROPIUM BROM 0.5 MG/2.5ML INH SOL NEB SCH ×2 (22:00→22:39)
[2016-07-27] MEDS: ALBUTEROL SULF 2.5 MG/0.5ML(0.5%) NEB SOLN NEB SCH ×2 (22:00→22:39)
[2016-07-28 04:42] VITALS: BP 117/57
[2016-07-28] MEDS: LINEZOLID 600MG/300ML 300 ML IV SCH ×2 (05:37→16:55)
[2016-07-28] MEDS: BOOST PLUS 8 ounce PO SCH ×4 (05:38→21:42)
[2016-07-28] MEDS: ALBUTEROL SULF 2.5 MG/0.5ML(0.5%) NEB SOLN NEB SCH ×2 (06:23→22:11)
[2016-07-28] MEDS: IPRATROPIUM BROM 0.5 MG/2.5ML INH SOL NEB SCH ×2 (06:23→22:11)
[2016-07-28] MEDS: metroNIDAZOLE 500 MG TAB PO SCH ×3 (07:00→16:55)
[2016-07-28] MEDS: PRO-STAT 64 30ML PO SCH ×2 (08:00→16:55)
[2016-07-28 09:00] VITALS: BP 113/54
[2016-07-28] MEDS: ASPirin 81 mg TAB PO SCH (10:25)
[2016-07-28] MEDS: AMIODARONE HCL 200 MG TAB PO SCH ×2 (10:25→21:43)
[2016-07-28] MEDS: FLORASTOR (S. BOULARDII) 250 MG CAP PO SCH (10:25)
[2016-07-28] MEDS: MULTIPLE VITAMIN TAB PO SCH (10:26)
[2016-07-28 13:00] VITALS: BP 116/52
[2016-07-28 17:00] VITALS: BP 110/54
[2016-07-28 22:00] VITALS: BP 118/53
[2016-07-29 05:00] VITALS: BP 129/57
[2016-07-29] MEDS: BOOST PLUS 8 ounce PO SCH ×4 (05:47→22:42)
[2016-07-29] MEDS: LINEZOLID 600MG/300ML 300 ML IV SCH ×2 (05:47→17:00)
[2016-07-29] MEDS: metroNIDAZOLE 500 MG TAB PO SCH ×4 (05:48→20:21)
[2016-07-29 06:31] LABS: Basophils # (auto) 0 uL; Basophils % (auto) 0.3 % (0.0-2.0); Eosinophils # (auto) 0.1 uL; Eosinophils % (auto) 0.7 % (0.0-7.0); Hematocrit 27.1 % (41.0-53.0); Hemoglobin 8.8 g/dL (13.5-17.5); Lymphocytes # (auto) 1.1 uL; Lymphocytes % (auto) 15.4 % (10.0-50.0); Mean Corpuscular Hgb Conc. 32.5 g/dL (32.0-36.0); Mean Corpuscular Volume 83.1 fL (80.0-100.0); Mean Platelet Volume 6.7 fL (7.4-10.4); Monocytes # (auto) 0.5 uL; Monocytes % (auto) 6.3 % (0.0-12.0); Neutrophils # (auto) 5.6 uL; Neutrophils % (auto) 77.3 % (37.0-80.0); Platelet Count (auto) 347 10^3/uL (140-450); Red Cell Distribution Width 16.8 % (11.6-16.0); White Blood Cell 7.3 10^3/uL (4.4-10.8)
[2016-07-29 06:56] LABS: Albumin 1.6 g/dL (3.4-5.0); BUN/Creatinine Ratio 33.3; Bilirubin, Total 0.2 mg/dL (0.2-1.0); Calcium 7.1 mg/dL (8.5-10.1); Total Protein 4.9 g/dL (6.4-8.2)
[2016-07-29] MEDS: PRO-STAT 64 30ML PO SCH ×2 (08:00→18:00)
[2016-07-29 09:00] VITALS: BP 117/60
[2016-07-29] MEDS: ALBUTEROL SULF 2.5 MG/0.5ML(0.5%) NEB SOLN NEB SCH ×2 (10:11→22:00)
[2016-07-29] MEDS: IPRATROPIUM BROM 0.5 MG/2.5ML INH SOL NEB SCH ×2 (10:11→22:00)
[2016-07-29] MEDS: FLORASTOR (S. BOULARDII) 250 MG CAP PO SCH (10:39)
[2016-07-29] MEDS: AMIODARONE HCL 200 MG TAB PO SCH ×2 (10:40→22:43)
[2016-07-29] MEDS: MULTIPLE VITAMIN TAB PO SCH (10:40)
[2016-07-29] MEDS: ASPirin 81 mg TAB PO SCH (10:43)
[2016-07-29 13:00] VITALS: BP 119/55
[2016-07-29 13:46] LABS: Urine Bilirubin Negative (Negative); Urine Color Yellow (Yellow); Urine Glucose Normal (Normal); Urine Ketone Negative (Negative); Urine Mucus FEW (None Seen); Urine Nitrite Negative (Negative); Urine RBC 61 /hpf (0 - 3); Urine Squamous Epithelial Cell FEW /hpf (<5); Urine Urobilinogen Normal (Negative); Urine pH 6.5 (5.0-8.0)
[2016-07-29 14:10] LABS: Urine Blood 2+ /uL (Negative)
[2016-07-29 17:00] VITALS: BP 111/55
[2016-07-29 21:00] VITALS: BP 100/51
[2016-07-30 05:00] VITALS: BP 114/52
[2016-07-30] MEDS: metroNIDAZOLE 500 MG TAB PO SCH ×3 (05:35→12:00)
[2016-07-30] MEDS: LINEZOLID 600MG/300ML 300 ML IV SCH (05:36)
[2016-07-30] MEDS: BOOST PLUS 8 ounce PO SCH ×2 (05:36→12:00)
[2016-07-30] MEDS: IPRATROPIUM BROM 0.5 MG/2.5ML INH SOL NEB SCH (07:04)
[2016-07-30] MEDS: ALBUTEROL SULF 2.5 MG/0.5ML(0.5%) NEB SOLN NEB SCH (07:04)
[2016-07-30] MEDS: PRO-STAT 64 30ML PO SCH (08:00)
[2016-07-30] MEDS: ASPirin 81 mg TAB PO SCH (09:58)
[2016-07-30] MEDS: FLORASTOR (S. BOULARDII) 250 MG CAP PO SCH (10:00)
[2016-07-30] MEDS: AMIODARONE HCL 200 MG TAB PO SCH (10:00)
[2016-07-30] MEDS: MULTIPLE VITAMIN TAB PO SCH (10:01)
[2016-07-30 13:00] VITALS: BP 126/65
[2016-07-30 13:51] LABS: Hematocrit 26.8 % (41.0-53.0); Hemoglobin 8.7 g/dL (13.5-17.5)
[2016-07-30] MEDS ORDERED: LINE600T PO (14:19)
[2016-07-30 14:44] LABS: Allen Test Yes; Base Excess -0.3 mmol/L (-2.0-2.0); Blood 02Sat 92.2 % (96-100); Blood COHb 0.4 % (0.5-1.5); Blood MetHb 0.3 % (0.0-1.5); HCO3 22.4 mmol/L (22-26.0); HHb 7.7 % (0.0-5.0); MODE ROOM AIR; O2Hb 91.6 % (94.0-97.0); PCO2 29.4 mmHg (35.0-45.0); PCO2(T) 29.4 mmHg (35.0-45.0); PO2 62.8 mmHg (80.0-100.0); PO2(T) 62.8 mmHg (80.0-100.0); Sample Type Arterial; pH 7.499 (7.350-7.450)
[2016-07-30 16:48] VITALS: BP 126/60
[2016-07-30 16:52] VITALS: BP 129/63
== END 2016-07-30 18:45 | disposition hospice, home (50) | DRG 871 ==
LOC: EDBD 16:14 → ER 16:23 → TELE 16:24 → TELE-WESTW 07-19 08:39 → WEST WING 07-19 13:03
PROVIDERS: ADMIT Emergency Medicine; ATTEND Internal Medicine
DX: A41.9 Sepsis, unspecified organism (principal); E43 Unspecified severe protein-calorie malnutrition; J18.1 Lobar pneumonia, unspecified organism; J96.00 Acute respiratory failure, unspecified whether with hypoxia or hypercapnia; J44.0 Chronic obstructive pulmonary disease with (acute) lower respiratory infection; J98.11 Atelectasis; A04.7 Enterocolitis due to Clostridium difficile; N39.0 Urinary tract infection, site not specified; I50.9 Heart failure, unspecified; I11.0 Hypertensive heart disease with heart failure; F17.210 Nicotine dependence, cigarettes, uncomplicated; I48.0 Paroxysmal atrial fibrillation; Z16.21 Resistance to vancomycin; B95.2 Enterococcus as the cause of diseases classified elsewhere; I70.0 Atherosclerosis of aorta; N31.2 Flaccid neuropathic bladder, not elsewhere classified; B95.7 Other staphylococcus as the cause of diseases classified elsewhere; D63.8 Anemia in other chronic diseases classified elsewhere; F02.80 Dementia in other diseases classified elsewhere, unspecified severity, without behavioral disturbance, psychotic disturbance, mood disturbance, and anxiety; G30.9 Alzheimer's disease, unspecified; Z86.19 Personal history of other infectious and parasitic diseases; Z68.20 Body mass index [BMI] 20.0-20.9, adult; Z80.1 Family history of malignant neoplasm of trachea, bronchus and lung; Z90.79 Acquired absence of other genital organ(s)
CPT/HCPCS: 36415; 36600; 71010; 80048; 80053; 81001; 82805; 83735; 83880; 84484; 85014; 85018; 85025; 87040; 87086; 87088; 87186; 87493; 93005; 94640; 96365; 96366; 96375; 97001; 97110; 97116; 97530; J1335; J2543